=== PATIENT | male | born 2000 | race Caucasian/White ===

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

== ENCOUNTER 2022-01-18 10:20 | Emergency (ER) | payer MEDICAID ==
[~2022-01-18] VITALS: Ht 190.5 cm; Wt 70.5 kg
[~2022-01-18 10:20] MED LIST changes: +ALBU6.7H14 INH; -ALBU6.7H9 INH
[2022-01-18 10:37] VITALS: BP 112/76
[2022-01-18] MEDS ORDERED: LIDOcaine 1% W/epiNEPHrine 1:100,000 20ml vial SQ ONE (13:30)
[2022-01-18] MEDS ORDERED: LIDOCAINE 1%/EPI 1:100,000 inj. 10 ML multi-dose vial SQ ONE (13:32)
[2022-01-18] MEDS ORDERED: CEPH250T PO (14:25)
== END 2022-01-18 14:36 | disposition home or self-care (01) ==
LOC: ER 10:20
DX: S91.311A Laceration without foreign body, right foot, initial encounter (principal); J45.909 Unspecified asthma, uncomplicated; Z88.0 Allergy status to penicillin; Z79.899 Other long term (current) drug therapy; W22.8XXA Striking against or struck by other objects, initial encounter; Y93.89 Activity, other specified; Y92.89 Other specified places as the place of occurrence of the external cause; Y99.8 Other external cause status
CPT/HCPCS: 12001; 99282; J7030; A6449

== ENCOUNTER 2023-05-31 19:06 | Emergency (ER) | payer MEDICAID ==
[~2023-05-31] VITALS: Ht 190.5 cm; Wt 72.0 kg
[2023-05-31 19:15] VITALS: BP 116/86; PULSE 111; RESP 18; TEMP 97.9; O2SAT 95
== END 2023-05-31 19:24 | disposition home or self-care (01) ==
LOC: ER 19:06
DX: S05.12XA Contusion of eyeball and orbital tissues, left eye, initial encounter (principal); J45.909 Unspecified asthma, uncomplicated; Z88.0 Allergy status to penicillin; Z79.899 Other long term (current) drug therapy; Z79.1 Long term (current) use of non-steroidal anti-inflammatories (NSAID); W19.XXXA Unspecified fall, initial encounter; Y93.89 Activity, other specified; Y92.89 Other specified places as the place of occurrence of the external cause; Y99.8 Other external cause status
CPT/HCPCS: 99282